=== PATIENT | male | born 1985 | race African-American/Black ===

== ENCOUNTER → 2016-05-07 20:18 | Outpatient (CLI) | payer MEDICAID ==
[2016-04-10 06:21] VITALS: BMI 22.8
[2016-05-09 06:14] LABS: RAPID PLASMA REAGIN Non Reactive (Non Reactive)
[2016-05-10 16:08] LABS: ANGIOTENSIN CONVERTING ENZYME 81 U/L (14-82)
[2016-05-13 12:17] LABS: BARTONELLA - HENSELAE IGM Negative titer (Neg:<1:100); BARTONELLA - QUINTANA IGG Negative titer (Neg:<1:320); BARTONELLA - QUINTANA IGM Negative titer (Neg:<1:100)
[2016-05-13 16:12] LABS: F. TULARENSIS - IGG Negative (()); F. TULARENSIS - IGM Negative (())
[2016-06-18 15:43] LABS: CHLAMYDIA TRACHOMATIS, NAA Negative
== END | disposition home or self-care (01) ==
LOC: D.LABREF 20:18
PROVIDERS: Student in an Organized Health Care Education/Training Program
DX: R59.9 Enlarged lymph nodes, unspecified (principal)

== ENCOUNTER 2016-11-27 08:48 | Emergency (ER) | payer MEDICAID ==
[2016-04-10 06:21] VITALS: BMI 22.8
== END 2016-11-27 09:55 | disposition home or self-care (01) ==
LOC: D.ER 08:48
DX: L72.8 Other follicular cysts of the skin and subcutaneous tissue (principal)

== ENCOUNTER 2016-12-31 05:04 | Day surgery (SDC) | payer MEDICAID ==
[~2016-12-31] VITALS: Ht 182.9 cm; Wt 82.1 kg
--- NOTE | ~2016-12-31 | OP ---
PATIENT NAME: PEREZ MORA MEDICAL RECORD: [id number] :[birth year] LOCATION:[facility] ADMISSION DATE: SURGEON: MARIBEL ARGUETA MD DATE OF OPERATION: 12/31/2016 PREOPERATIVE DIAGNOSIS: Left groin lymphocele. POSTOPERATIVE DIAGNOSIS: Left groin lymphocele. PROCEDURES: Drainage of left groin lymphocele with placement of drain. SURGEON: Maribel Argueta MD. RIB CLOTH KNITTER: None. BLOOD LOSS: Minimal. ANESTHESIA: General. DRAINS: Times 1 (10-[place] round Reyes drain). The risks, possible complications, and alternatives to the procedure were explained to the patient. He elects to proceed. The site was marked in the holding area. OPERATIVE COURSE: The patient was conveyed to the operating room. The left groin was sterilely prepped and draped. I entered the lymphocele medially and brought out the tunneling arrow laterally. I shortened the drain. I sutured the entry site with a single horizontal mattress 3-0 Vicryl Rapide sutures. The drain was sutured to skin with a 2-0 silk. The drain was attached to the bulb reservoir. A sterile dressing was applied. The patient was then extubated and conveyed to post-anesthesia care unit where he was in stable condition. He will be dismissed home on hydrocodone for pain. TRANSINT:[id number] Voice Confirmation ID: [id number] DOCUMENT ID: [id number] MARIBEL ARGUETA MD CC: [id number] [id number] DICTATION DATE: 12/31/16 1326 MD PHYSICIAN DERMATOLOGIST: 12/31/161914 [facility] 12/31/16 [address] [address] [place] [address]
[2016-12-31 10:16] VITALS: BP 134/71; Ht 182.9 cm; Wt 82.1 kg
--- NOTE | 2016-12-31 15:31 | NUR ---
DISCHARGE INSTRUCTIONS REVIEWED, VERBALIZED UNDERSTANDING. SCRIPT TO PATIENT. LUAN DRAIN TEACHING INSTRUCTED TO PATIENT AND , VERBALIZED UNDERSTANDING.
== END 2016-12-31 15:37 | disposition home or self-care (01) ==
LOC: D.OPS 05:04 → D.PAN 10:00 → D.OPS 12:00 → D.PAN 12:00 → D.OPS 13:30 → D.PAN 13:30 → D.OPS 15:37
DX: I89.8 Other specified noninfective disorders of lymphatic vessels and lymph nodes (principal); Z01.812 Encounter for preprocedural laboratory examination